=== PATIENT | female | born 1975 | race American Indian/Alaskan Native ===

== ENCOUNTER 2016-08-31 18:13 | Emergency (ER) | payer MEDICAID, OTHER ==
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
[2016-09-01 00:19] VITALS: BP 140/88
== END 2016-09-01 00:21 | disposition home or self-care (01) ==
LOC: ED 18:13
DX: M79.1 Myalgia (principal); V49.49XA Driver injured in collision with other motor vehicles in traffic accident, initial encounter; X58.XXXA Exposure to other specified factors, initial encounter; Y93.9 Activity, unspecified; Y92.9 Unspecified place or not applicable; Y99.9 Unspecified external cause status
CPT/HCPCS: 99282